=== PATIENT | female | born 1965 | race Caucasian/White ===

== ENCOUNTER → 2016-07-25 | Outpatient (CLI) | payer OTHER | END | disposition home or self-care (01) | LOC: CFH 07:00 | PROVIDERS: ATTEND Nurse Practitioner | DX: K21.9 Gastro-esophageal reflux disease without esophagitis (principal) | CPT/HCPCS: 74241 ==

== ENCOUNTER 2016-10-28 09:39 | Emergency (ER) | payer OTHER ==
[~2016-10-28] VITALS: Ht 160 cm; Wt 68.4 kg
[2016-10-28 09:47] VITALS: BP 135/79
[2016-10-28] MEDS ORDERED: PROPARACAINE OPHTH 0.5%, 15ML ONE ×2 (09:57→10:05)
[2016-10-28] MEDS ORDERED: FLUORESCEIN OPHTHALMIC 1 MG STRIP ONE ×2 (09:57→10:05)
[2016-10-28] MEDS ORDERED: PROPARACAINE OPHTH 0.5%, 15ML EACHEYE ONE (10:00)
[2016-10-28] MEDS ORDERED: FLUORESCEIN OPHTHALMIC 1 MG STRIP EACHEYE ONE (10:00)
== END 2016-10-28 10:31 | disposition home or self-care (01) ==
LOC: ED 10:17
DX: T15.12XA Foreign body in conjunctival sac, left eye, initial encounter (principal)
CPT/HCPCS: 65210; 99284